=== PATIENT | male | born 1945 | race Caucasian/White ===

== ENCOUNTER → 2016-04-04 | Day surgery (SDC) | payer MEDICARE ==
[~2016-04-04] VITALS: Ht 175.3 cm; Wt 72.1 kg
[~2016-04-04] MED LIST: /CELE20CA OR; /HALO1T OR; /OXCA30TA OR; /QUET25TA PO; ACET500C OR; ACET65TA PO; ACETAMINOPHEN 325 MG TAB PO PRN; ALBU17IN2 IN; AMBI10TA OR; AMIODIPINE; AMLO10TA2 PO; ASPI81TA3 OR; ASPI81TA83 OR; AcetaZOLAMIDE 500 MG ER CAP PO ONE; BSS with VANC/TOB/EPI for EYE CASES IR ONE; COLA100C2 OR; CYCLOPENTOLATE 2% OPHTH SOLN OD ONE; D5W/0.2% SODIUM CHLORIDE 1,000 ML IV SCH; FISH100049 PO; FLEXERIL; HEALON DUET (HEALON 10MG/ML 0.55ML & HEALON ENDOCOAT 30MG/ML 0.85ML) As Ordered ONE; HEALON DUET (HEALON 10MG/ML 0.55ML & HEALON ENDOCOAT 30MG/ML 0.85ML) XX ONE; KETOROLAC 0.5% OPHTH SOLN OD ONE; LACT10SO8 OR; LAMISIL PO; LIDOCAINE 1% SDV 5 ML VIAL As Ordered ONE; LIDOCAINE 4% INJ 5 ML AMP OU ONE; MIDAZOLAM INJ 2 MG/2 ML VIAL (J2250) As Ordered ONE; MOXIFLOXACIN IN BSS 0.25MG/0.25ML INTRACAMERAL INJ (OR EYE ONLY)(J2280) As Ordered ONE; MOXIFLOXACIN IN BSS 0.25MG/0.25ML INTRACAMERAL INJ (OR EYE ONLY)(J2280) ICAM ONE; NAPR500T OR; NASACORT AQ; NORV5TAB OR; NORVASC PO; OFLOXACIN 0.3 % (OCUFLOX) OPTH SOL 5ML OD ONE; ONDANSETRON 4MG/2ML VIAL (J2405) IV PRN; PHENYLEPHRINE 2.5% OPHTH SOL 2ML OD ONE; POVIDONE-IODINE 5% OPHTH PREP SOL 30ML As Ordered ONE; PROPARACAINE 0.5% OPHTH SOL 15ML OD PRN; RESTASIS EYE DROPS OU; RESTASIS OU; SALINE NASAL SPRAY; SERO1TAB2 PO; SERO400T3 OR; SILD50TA OR; SING10TA31 OR; SYSTANE OU; TRAZ50TA OR; TRIAMCINOLONE PRES FR 40 MG/ML 1ML(TRIESENCE)(OR EYE ONLY)(J3300 PER 1MG) As Ordered ONE; TRIAMCINOLONE PRES FR 40 MG/ML 1ML(TRIESENCE)(OR EYE ONLY)(J3300 PER 1MG) IO ONE; TRIMETHOBENZAMIDE 300 MG CAP PO PRN; TROPICAMIDE 1% OPHTH SOLN 2 ML OD ONE; TYLENOL #3 OR; VICO5TAB OR; [UNRECOGNIZED DRUG - OTHER]; naproxen PO
--- NOTE | 2016-04-04 08:44 | RO ---
DATE OF PROCEDURE: 04/04/2016 PREPROCEDURE DIAGNOSIS: Cataract of right eye. POSTPROCEDURE DIAGNOSIS: Cataract of right eye. PROCEDURE: Femtosecond laser and phacoemulsification of the intraocular lens with lens implantation right eye. Intraocular lens power used was PCB00, 21 diopter. SURGEON: Dr. Armani Collins MOWING MACHINE OPERATOR: None. ANESTHESIA: Local IV standby. FINDINGS: Cataract of right eye. COMPLICATIONS: None. DESCRIPTION OF PROCEDURE: The patient was brought to the operating room and laid in supine position. A lid speculum was placed, and patient was brought under the femtosecond laser. After the satisfactory placement of the patient interface, primary incision, secondary incision, and arcuate incisions with lens fragmentation was done without any complication per plan. The patients interface was then removed and lid speculum removed. Patient was placed under the microscope. The eye was prepped and draped in a sterile fashion for ophthalmic surgery. Lid speculum was placed. The secondary incision was opened and EndoCoat was injected into the anterior chamber. The temporal clear coronal incision was then opened and capsulorrhexis removed, followed by hydrodissection. This was followed by phacoemulsification of the lens within the capsular bag. Cortical material was then aspirated, and Healon was injected into the capsular bag. Intraocular lens was then placed. Excess Healon was aspirated. Wound was hydrated. The lid speculum was removed, and patient was returned to the recovery room in stable condition.
[2016-04-04 09:12] VITALS: BP 155/82
== END | disposition home or self-care (01) ==
LOC: M SDC 07:00
PROVIDERS: ATTEND Ophthalmology
DX: H26.9 Unspecified cataract (principal); I10 Essential (primary) hypertension; J45.909 Unspecified asthma, uncomplicated; G40.909 Epilepsy, unspecified, not intractable, without status epilepticus; F31.9 Bipolar disorder, unspecified; Z79.899 Other long term (current) drug therapy; Z95.0 Presence of cardiac pacemaker
CPT/HCPCS: 66984; J2250; J2280; J3300; V2632

== ENCOUNTER → 2016-05-18 | Outpatient (CLI) | payer MEDICARE ==
[~2016-05-18] MED LIST changes: -ACETAMINOPHEN 325 MG TAB PO PRN; -AcetaZOLAMIDE 500 MG ER CAP PO ONE; -BSS with VANC/TOB/EPI for EYE CASES IR ONE; -CYCLOPENTOLATE 2% OPHTH SOLN OD ONE; -D5W/0.2% SODIUM CHLORIDE 1,000 ML IV SCH; -HEALON DUET (HEALON 10MG/ML 0.55ML & HEALON ENDOCOAT 30MG/ML 0.85ML) As Ordered ONE; -HEALON DUET (HEALON 10MG/ML 0.55ML & HEALON ENDOCOAT 30MG/ML 0.85ML) XX ONE; -KETOROLAC 0.5% OPHTH SOLN OD ONE; -LIDOCAINE 1% SDV 5 ML VIAL As Ordered ONE; -LIDOCAINE 4% INJ 5 ML AMP OU ONE; -MIDAZOLAM INJ 2 MG/2 ML VIAL (J2250) As Ordered ONE; -MOXIFLOXACIN IN BSS 0.25MG/0.25ML INTRACAMERAL INJ (OR EYE ONLY)(J2280) As Ordered ONE; -MOXIFLOXACIN IN BSS 0.25MG/0.25ML INTRACAMERAL INJ (OR EYE ONLY)(J2280) ICAM ONE; -OFLOXACIN 0.3 % (OCUFLOX) OPTH SOL 5ML OD ONE; -ONDANSETRON 4MG/2ML VIAL (J2405) IV PRN; -PHENYLEPHRINE 2.5% OPHTH SOL 2ML OD ONE; -POVIDONE-IODINE 5% OPHTH PREP SOL 30ML As Ordered ONE; -PROPARACAINE 0.5% OPHTH SOL 15ML OD PRN; -TRIAMCINOLONE PRES FR 40 MG/ML 1ML(TRIESENCE)(OR EYE ONLY)(J3300 PER 1MG) As Ordered ONE; -TRIAMCINOLONE PRES FR 40 MG/ML 1ML(TRIESENCE)(OR EYE ONLY)(J3300 PER 1MG) IO ONE; -TRIMETHOBENZAMIDE 300 MG CAP PO PRN; -TROPICAMIDE 1% OPHTH SOLN 2 ML OD ONE
--- NOTE | 2016-05-18 16:15 | REP ---
Right upper extremity duplex Doppler venous ultrasound. Real time compression and duplex Doppler evaluation of the right upper extremity deep venous system is performed. The right subclavian, jugular, axillary, brachial, basilic and cephalic veins are fully compressible where accessible with transducer pressure, and demonstrate no intraluminal thrombus and normal venous waveforms. There is no evidence of deep venous thrombosis. Impression: No evidence of deep venous thrombosis of the right upper extremity deep vein system. Signed by Alexandre Dela Cruz MD 05/18/2016 04:06 P
== END ==
LOC: M RAD 14:57
PROVIDERS: ATTEND Orthopaedic Surgery
DX: M79.601 Pain in right arm (principal); Z86.79 Personal history of other diseases of the circulatory system

== ENCOUNTER → 2017-04-15 | Outpatient (CLI) | payer MEDICARE | LOC: M ADAMS 14:18 | DX: M51.34 Other intervertebral disc degeneration, thoracic region (principal); M41.25 Other idiopathic scoliosis, thoracolumbar region | CPT/HCPCS: 72070 ==

== ENCOUNTER 2018-08-12 11:09 | Day surgery (SDC) | payer MEDICARE ==
[~2018-08-12] VITALS: Ht 175.3 cm; Wt 74.8 kg
[~2018-08-12 11:09] MED LIST changes: -/CELE20CA OR; -/HALO1T OR; -/OXCA30TA OR; -/QUET25TA PO; +ACETAMINOPHEN 325 MG TAB PO PRN; -AMLO10TA2 PO; +AMLO10TA5 PO; +BSS with VANC/TOB/EPI for EYE CASES IR ONE; +CELE1CAP4 OR; +CYCLOPENTOLATE 2% OPHTH SOLN 2ML BTL OS ONE; +FISH1000 PO; +HALO1TAB20 OR; +HEALON DUET PRO(HEALON 10MG/ML 0.55ML & HEALON ENDOCOAT 30MG/ML 0.85ML) As Ordered ONE; +LIDOCAINE 1% SDV 5 ML VIAL As Ordered ONE; +LIDOCAINE 3.5 % 1ML OPHTH TOPICAL GEL OU ONE; +MIDAZOLAM INJ 2 MG/2 ML VIAL (J2250) As Ordered ONE; +MOXIFLOXACIN IN BSS 0.25MG/0.25ML INTRACAMERAL INJ (OR EYE ONLY)(J2280) As Ordered ONE; +OFLOXACIN 0.3 % (OCUFLOX) OPTH SOL 5ML OS ONE; +PHENYLEPHRINE 2.5% OPHTH SOL 2ML OS ONE; +PHENYLEPHRINE HCL 10 % OPHTH. SOL 5ML OS PRN; +POVIDONE-IODINE 5% OPHTH PREP SOL 30ML As Ordered ONE; +SERO1TAB3 PO; +TRIAMCINOLONE PRES FR 40 MG/ML 1ML(TRIESENCE)(OR EYE ONLY)(J3300 PER 1MG) As Ordered ONE; +TRIL1TAB OR; +TROPICAMIDE 1% OPHTH SOLN 2ML OS ONE; +VITAD1000T PO; +fentaNYL 100 MCG/2 ML INJECTION (J3010) As Ordered ONE
[2018-08-12] MEDS ORDERED: AcetaZOLAMIDE 500 MG ER CAP As Ordered ONE (12:52)
[2018-08-12 13:00] VITALS: BP 121/63
[2018-08-12] MEDS ORDERED: TRIMETHOBENZAMIDE 300 MG CAP PO PRN (13:00)
[2018-08-12] MEDS ORDERED: AcetaZOLAMIDE 500 MG ER CAP PO ONE (13:00)
[2018-08-12] MEDS ORDERED: ONDANSETRON 4MG/2ML VIAL (J2405) IV PRN (13:00)
== END 2018-08-12 13:10 | disposition home or self-care (01) ==
LOC: M SDC 11:09
PROVIDERS: ATTEND Ophthalmology
DX: H26.9 Unspecified cataract (principal); I49.9 Cardiac arrhythmia, unspecified; I10 Essential (primary) hypertension; M12.9 Arthropathy, unspecified; F31.9 Bipolar disorder, unspecified; J45.909 Unspecified asthma, uncomplicated; Z95.0 Presence of cardiac pacemaker; Z96.611 Presence of right artificial shoulder joint; Z79.899 Other long term (current) drug therapy
CPT/HCPCS: 66984; 92015; J2250; J2280; J3010; J3300; V2632

== ENCOUNTER → 2019-05-02 | Outpatient (REF) | payer MEDICARE ==
[~2019-05-02] MED LIST changes: -ACETAMINOPHEN 325 MG TAB PO PRN; -BSS with VANC/TOB/EPI for EYE CASES IR ONE; +CHOL100029 PO; -CYCLOPENTOLATE 2% OPHTH SOLN 2ML BTL OS ONE; -HEALON DUET PRO(HEALON 10MG/ML 0.55ML & HEALON ENDOCOAT 30MG/ML 0.85ML) As Ordered ONE; -LIDOCAINE 1% SDV 5 ML VIAL As Ordered ONE; -LIDOCAINE 3.5 % 1ML OPHTH TOPICAL GEL OU ONE; -MIDAZOLAM INJ 2 MG/2 ML VIAL (J2250) As Ordered ONE; -MOXIFLOXACIN IN BSS 0.25MG/0.25ML INTRACAMERAL INJ (OR EYE ONLY)(J2280) As Ordered ONE; -OFLOXACIN 0.3 % (OCUFLOX) OPTH SOL 5ML OS ONE; -PHENYLEPHRINE 2.5% OPHTH SOL 2ML OS ONE; -PHENYLEPHRINE HCL 10 % OPHTH. SOL 5ML OS PRN; -POVIDONE-IODINE 5% OPHTH PREP SOL 30ML As Ordered ONE; -TRIAMCINOLONE PRES FR 40 MG/ML 1ML(TRIESENCE)(OR EYE ONLY)(J3300 PER 1MG) As Ordered ONE; -TROPICAMIDE 1% OPHTH SOLN 2ML OS ONE; -VITAD1000T PO; -fentaNYL 100 MCG/2 ML INJECTION (J3010) As Ordered ONE
[2019-05-02 18:28] LABS: APPEARANCE, URINE CLEAR (CLEAR); BACTERIA, URINE AUTO NEGATIVE (NEGATIVE); BILIRUBIN, URINE AUTO NEGATIVE (NEGATIVE); BLOOD, URINE BLOOD NEGATIVE (NEGATIVE); COLOR, URINE YELLOW (YELLOW); GLUCOSE, URINE (UA) AUTO NEGATIVE (NEGATIVE); KETONE, URINE AUTO NEGATIVE (NEGATIVE); LEUKOCYTE ESTERASE, URINE AUTO NEGATIVE (NEGATIVE); NITRITE, URINE AUTO NEGATIVE (NEGATIVE); PROTEIN, URINE AUTO NEGATIVE (NEGATIVE); RBC, URINE AUTO 0 /HPF (0-3); SPECIFIC GRAVITY URINE AUTO 1.014 (1.002-1.035); SQUAMOUS EPITHELIAL CELL UR AU 0 /HPF (0-6); WBC, URINE AUTO 0 /HPF (0-3)
== END ==
LOC: M SMT 17:39
PROVIDERS: ATTEND Nurse Practitioner Family
DX: R35.0 Frequency of micturition (principal)
CPT/HCPCS: 51798; 81001; 87086; G0463

== ENCOUNTER → 2019-11-28 | Outpatient (CLI) | payer MEDICARE ==
[~2019-11-28] MED LIST changes: -AMLO10TA5 PO; +AMLO1TAB25 PO
== END ==
LOC: M LABSMTC 10:59
PROVIDERS: ATTEND Internal Medicine Cardiovascular Disease
DX: Z01.812 Encounter for preprocedural laboratory examination (principal); Z20.828 Contact with and (suspected) exposure to other viral communicable diseases; I49.5 Sick sinus syndrome; Z95.0 Presence of cardiac pacemaker

== ENCOUNTER → 2019-11-28 | Outpatient (CLI) | payer MEDICARE ==
[2019-11-28 12:11] LABS: BASO % 0.6 % (0.0-1.0); EOS # 0.2 10^3/uL (0.0-0.5); EOS % 2.4 % (0.0-3.0); HEMATOCRIT 45.1 % (42.0-52.0); HEMOGLOBIN 15.3 g/dl (13.5-17.5); LYMPH # 1.1 10^3/uL (1.5-5.0); LYMPH % 16.8 % (24.0-44.0); MEAN CORPUSCULAR HEMOGLOBIN 31.9 pg (27.0-33.0); MEAN CORPUSCULAR HGB CONC 33.9 g/dl (32.0-36.5); MONO # 0.9 10^3/uL (0.0-0.8); MONO % 13.3 % (0.0-5.0); NEUTROPHILS # 4.5 10^3/uL (1.5-8.5); NEUTROPHILS % 66.8 % (36.0-66.0); PLATELET COUNT, AUTOMATED 206 10^3/uL (150-450); WHITE BLOOD COUNT 6.8 10^3/uL (4.0-10.0)
[2019-11-28 12:28] LABS: BLOOD UREA NITROGEN 23 MG/DL (7-18); CALCIUM LEVEL 9.1 MG/DL (8.8-10.2); CARBON DIOXIDE LEVEL 30 MEQ/L (21-32); CHLORIDE LEVEL 104 MEQ/L (98-107); CREATININE FOR GFR 0.98 MG/DL (0.70-1.30); GLOMERULAR FILTRATION RATE > 60.0 (>42); GLUCOSE, FASTING 79 MG/DL (70-100); POTASSIUM SERUM 4.4 MEQ/L (3.5-5.1); SODIUM LEVEL 136 MEQ/L (136-145)
== END ==
LOC: M LAB 11:39
PROVIDERS: ATTEND Internal Medicine Cardiovascular Disease
DX: Z01.812 Encounter for preprocedural laboratory examination (principal); Z20.828 Contact with and (suspected) exposure to other viral communicable diseases; I49.5 Sick sinus syndrome; Z95.0 Presence of cardiac pacemaker
CPT/HCPCS: 36415; 80048; 85025; C9803; U0003

== ENCOUNTER 2020-01-13 07:13 | Emergency (ER) | payer MEDICARE ==
[~2020-01-13] VITALS: Ht 175.3 cm; Wt 78.7 kg
[2020-01-13] MEDS ORDERED: QUET1TAB10 (07:24)
[2020-01-13] MEDS ORDERED: XARE20TA (07:24)
[2020-01-13] MEDS ORDERED: AMIO200T3 (07:24)
[2020-01-13] MEDS ORDERED: METO1TAB7 (07:24)
[2020-01-13] MEDS ORDERED: FURO20TA2 (07:24)
[2020-01-13] MEDS ORDERED: QUET1TAB7 (07:24)
[2020-01-13] MEDS ORDERED: TAMS1CAP17 (07:24)
[2020-01-13] MEDS ORDERED: AMMO12CR7 (07:24)
--- NOTE | 2020-01-13 07:51 | REPVR ---
PROCEDURE INFORMATION: Exam: CT Head Without Contrast Exam date and time: 01/13/2020 7:34 AM Age: 74 years old Clinical indication: Pain; Headache; Additional info: Fall on thinners TECHNIQUE: Imaging protocol: Computed tomography of the head without contrast. Radiation optimization: All CT scans at this facility use at least one of these dose optimization techniques: automated exposure control; mA and/or kV adjustment per patient size (includes targeted exams where dose is matched to clinical indication); or iterative reconstruction. COMPARISON: CT Head without contrast 04/24/2013 2:08 PM (report not provided) FINDINGS: Brain: Patchy lucencies in the white matter are nonspecific but most suggestive of chronic microvascular ischemic disease. There is no evidence for large acute cortical infarct. No intracranial hemorrhage or extraaxial collection is identified. There is no significant intracranial mass effect. Cerebral ventricles: No ventriculomegaly. Bones/joints: Unremarkable. No acute fracture. Paranasal sinuses: Visualized sinuses are unremarkable. No fluid levels. Mastoid air cells: Visualized mastoid air cells are well aerated. Vasculature: Intracranial atherosclerotic vascular calcifications are noted. Soft tissues: Unremarkable. IMPRESSION: No CT evidence for acute intracranial abnormality. Electronically signed by: Gato Dinh On 01/13/2020 07:51:02 AM
--- NOTE | 2020-01-13 08:16 | REP ---
INDICATION: trauma COMPARISON: 08/27/2007, 08/25/2007 TECHNIQUE: AP, lateral, bilateral oblique views. FINDINGS: Evidence for prior fixation along the lateral malleolus and fibula. Associated chronic posttraumatic degenerative changes are appreciated. There is evidence for a nondisplaced fracture of the medial malleolus which should be correlated with mechanism of injury and point of tenderness. IMPRESSION: Old injury and posttraumatic degenerative changes. Suspected nondisplaced acute medial malleolus fracture. <Electronically signed by Jeancarlos Clark > 01/13/20 [id number]
[2020-01-13 09:46] VITALS: BP 111/69
== END 2020-01-13 10:00 | disposition home or self-care (01) ==
LOC: M ED 07:13
DX: S82.54XA Nondisplaced fracture of medial malleolus of right tibia, initial encounter for closed fracture (principal); W01.0XXA Fall on same level from slipping, tripping and stumbling without subsequent striking against object, initial encounter; Y92.096 Garden or yard of other non-institutional residence as the place of occurrence of the external cause; I10 Essential (primary) hypertension; K21.9 Gastro-esophageal reflux disease without esophagitis; Z95.0 Presence of cardiac pacemaker; Z79.899 Other long term (current) drug therapy; Z79.01 Long term (current) use of anticoagulants; Z87.81 Personal history of (healed) traumatic fracture

== ENCOUNTER → 2020-05-27 | Outpatient (CLI) | payer MEDICARE ==
[~2020-05-27] MED LIST changes: +AMIO200T3; +AMMO12CR7; +FURO20TA2; +METO1TAB7; +QUET25TA3; +QUET300T2; +TAMS1CAP17; +XARE20TA
--- NOTE | 2020-05-27 11:25 | PFTRPT ---
Height: 69.00 Inches Weight: 170.00 Lbs BSA: 1.93 Diagnosis: R06.02 DATE: 05/27/2020 ORDERING PHYSICIAN: Dr. Vincent Parks Pre and post bronchodilator studies have excellent technical quality. Forced vital capacity is normal. FEV1 is in proportion. Obstructive index is therefore normal. Expiratory limit of the flow-volume loop is normal. No significant bronchodilator response is identified. Total lung capacity is borderline. Residual volume is in proportion. Diffusing capacity although mildly reduced is appropriate for alveolar volume. No hemoglobin available for correction. Airway resistance and conductance are normal. IMPRESSION: Borderline total lung capacity with mild reduction in the absolute diffusing capacity requires clinical correlation. MTDD
== END ==
LOC: M CARPUL 10:47
PROVIDERS: ATTEND Internal Medicine Cardiovascular Disease
DX: R06.02 Shortness of breath (principal); T46.2X5A Adverse effect of other antidysrhythmic drugs, initial encounter

== ENCOUNTER → 2020-05-31 | Outpatient (CLI) | payer MEDICARE ==
[2020-05-31 17:47] LABS: FREE T4 0.94 NG/DL (0.76-1.46); THYROID STIMULATING HORMONE 7.17 uIU/ML (0.358-3.740)
== END ==
LOC: M LAB 15:52
PROVIDERS: ATTEND Internal Medicine
DX: E03.9 Hypothyroidism, unspecified (principal)

== ENCOUNTER → 2020-08-09 | Outpatient (REF) | payer MEDICARE ==
[2020-08-09 14:27] LABS: FREE T4 0.85 NG/DL (0.76-1.46); THYROID STIMULATING HORMONE 8.37 uIU/ML (0.358-3.740)
== END ==
LOC: M LABDRWAD 13:25
PROVIDERS: ATTEND Internal Medicine
DX: E07.89 Other specified disorders of thyroid (principal)

== ENCOUNTER → 2020-12-30 | Outpatient (CLI) | payer MEDICARE ==
[~2020-12-30] MED LIST changes: +QUET1TAB17; -QUET25TA3
[2020-12-30 15:24] LABS: BASO # 0.1 10^3/uL (0.0-0.2); BASO % 0.7 % (0.0-1.0); EOS # 0.2 10^3/uL (0.0-0.5); EOS % 2.4 % (0.0-3.0); HEMATOCRIT 45.2 % (42.0-52.0); HEMOGLOBIN 15.3 g/dl (13.5-17.5); LYMPH # 1.6 10^3/uL (1.5-5.0); LYMPH % 24.1 % (24.0-44.0); MEAN CORPUSCULAR HEMOGLOBIN 31.9 pg (27.0-33.0); MEAN CORPUSCULAR HGB CONC 33.8 g/dl (32.0-36.5); MEAN CORPUSCULAR VOLUME 94.2 fl (80.0-96.0); MONO # 0.8 10^3/uL (0.0-0.8); MONO % 12.1 % (2.0-8.0); NEUTROPHILS # 4.1 10^3/uL (1.5-8.5); NEUTROPHILS % 60.4 % (36.0-66.0); PLATELET COUNT, AUTOMATED 204 10^3/uL (150-450); WHITE BLOOD COUNT 6.8 10^3/uL (4.0-10.0)
[2020-12-30 16:11] LABS: BLOOD UREA NITROGEN 15 MG/DL (7-18); CALCIUM LEVEL 9.2 MG/DL (8.8-10.2); CARBON DIOXIDE LEVEL 32 MEQ/L (21-32); CHLORIDE LEVEL 99 MEQ/L (98-107); CREATININE FOR GFR 0.95 MG/DL (0.70-1.30); GLOMERULAR FILTRATION RATE > 60.0 (>42); GLUCOSE, FASTING 94 MG/DL (70-100); POTASSIUM SERUM 4.3 MEQ/L (3.5-5.1); SODIUM LEVEL 134 MEQ/L (136-145)
== END ==
LOC: M LAB 14:56
PROVIDERS: ATTEND Internal Medicine Cardiovascular Disease
DX: R53.83 Other fatigue (principal)

== ENCOUNTER → 2020-12-31 | Outpatient (CLI) | payer MEDICARE ==
--- NOTE | 2020-12-31 12:01 | REP ---
INDICATION: PAIN IN RT KNEE AND BILAT ANKLE/FEET. COMPARISON: Right ankle of 01/13/2020 TECHNIQUE: Two views each ankle FINDINGS: Right ankle: Previous ORIF status quo. Due to the technique utilized in obtaining the radiograph the distal medial malleolar fracture is obscured. There is no change in appearance of the mortise. Left ankle: Two views showing no acute osseous abnormality. IMPRESSION: As above. <Electronically signed by Christian Salomon > 12/31/20 [id number]
--- NOTE | 2020-12-31 12:08 | REP ---
INDICATION: PAIN IN RT KNEE AND BILAT ANKLE/FEET. COMPARISON: None. TECHNIQUE: Four views each foot FINDINGS: Right foot: There are mild degenerative changes seen throughout the foot. The bones are somewhat demineralized. There is no acute fracture or destructive osseous lesion. Left: Mild degenerative changes seen throughout the foot. Bones are somewhat demineralized. There is no evidence of an acute fracture or destructive osseous lesion. IMPRESSION: Chronic changes bilateral. <Electronically signed by Christian Salomon > 12/31/20 [id number]
--- NOTE | 2020-12-31 12:11 | REP ---
INDICATION: PAIN IN RT KNEE AND BILAT ANKLE/FEET. COMPARISON: None. TECHNIQUE: Three views each knee FINDINGS: There is mild tricompartmental marginal osteophytosis seen bilaterally. There are calcifications seen in the medial and lateral compartment bilaterally. There is mild asymmetric patellofemoral joint space narrowing bilaterally. No acute fracture, dislocation or subluxation is seen bilaterally. IMPRESSION: Chronic changes as described above bilaterally. Compartmental calcifications likely secondary to calcified meniscal degenerative changes. <Electronically signed by Christian Salomon > 12/31/20 [id number]
== END ==
LOC: M SOG 11:15
PROVIDERS: ATTEND Orthopaedic Surgery
DX: M25.561 Pain in right knee (principal); M25.571 Pain in right ankle and joints of right foot; M25.572 Pain in left ankle and joints of left foot; M19.90 Unspecified osteoarthritis, unspecified site

== ENCOUNTER → 2021-01-18 | Outpatient (CLI) | payer MEDICARE ==
--- NOTE | 2021-01-18 17:41 | REPVR ---
PROCEDURE INFORMATION: Exam: CT Head Without Contrast Exam date and time: 01/18/2021 10:10 AM Age: 75 years old Clinical indication: Syncope and collapse TECHNIQUE: Imaging protocol: Computed tomography of the head without contrast. Radiation optimization: All CT scans at this facility use at least one of these dose optimization techniques: automated exposure control; mA and/or kV adjustment per patient size (includes targeted exams where dose is matched to clinical indication); or iterative reconstruction. COMPARISON: CT Head without contrast 01/13/2020 7:29 AM FINDINGS: Brain: No intracranial hemorrhage or extra-axial fluid collection. No evidence of mass effect or midline shift. Dela Cruz-white matter differentiation is intact. Cerebral ventricles: No ventriculomegaly. Paranasal sinuses: Visualized sinuses are unremarkable. No fluid levels. Mastoid air cells: Unremarkable. Bones/joints: No acute osseus lesion or fracture. Soft tissues: Unremarkable. IMPRESSION: No acute intracranial pathology. Electronically signed by: Manpreet Cason On 01/18/2021 17:40:39 PM
== END ==
LOC: M PLAIMG 09:45
PROVIDERS: ATTEND Internal Medicine
DX: R55 Syncope and collapse (principal)

== ENCOUNTER 2021-06-06 00:04 | Inpatient (IN) | payer MEDICARE ==
[~2021-06-06] VITALS: Ht 172.7 cm; Wt 80.5 kg
[2021-06-06] VITALS (8 sets, daily range): BP systolic 146–179; BP diastolic 67–93
[~2021-06-06 00:04] MED LIST changes: -AMIO200T3; +AMIO200T49; -AMMO12CR7; +AMMO12CR7 TOP; -FURO20TA2; +FURO20TA2 PO; -QUET1TAB17; +QUET1TAB17 PO; -QUET300T2; +QUET300T2 PO; -TAMS1CAP17; +TAMS1CAP17 PO; -XARE20TA; +XARE20TA PO
[2021-06-06] MEDS ORDERED: LEVO25TA5 PO (00:16)
[2021-06-06] MEDS ORDERED: GABA-282 PO (00:16)
[2021-06-06] MEDS ORDERED: AMBI5TAB PO (00:16)
[2021-06-06] MEDS ORDERED: LOSA50TA28 PO (00:16)
[2021-06-06] MEDS ORDERED: MELA10CA6 PO (00:16)
[2021-06-06] MEDS ORDERED: LOSARTAN 50MG TABLET PO ONE (02:25)
[2021-06-06 03:05] LABS: BASO % 0.3 % (0.0-1.0); EOS # 0.1 10^3/uL (0.0-0.5); EOS % 0.6 % (0.0-3.0); HEMATOCRIT 38.9 % (42.0-52.0); HEMOGLOBIN 14.4 g/dl (13.5-17.5); LYMPH % 9.5 % (24.0-44.0); MEAN CORPUSCULAR HEMOGLOBIN 33.3 pg (27.0-33.0); MONO # 0.8 10^3/uL (0.0-0.8); MONO % 7.9 % (2.0-8.0); NEUTROPHILS # 8.3 10^3/uL (1.5-8.5); NEUTROPHILS % 81.4 % (36.0-66.0); PLATELET COUNT, AUTOMATED 206 10^3/uL (150-450); RED BLOOD COUNT 4.32 10^6/uL (4.30-6.10); WHITE BLOOD COUNT 10.1 10^3/uL (4.0-10.0)
[2021-06-06 03:30] LABS: BLOOD UREA NITROGEN 12 MG/DL (7-18); CALCIUM LEVEL 8.5 MG/DL (8.8-10.2); CARBON DIOXIDE LEVEL 25 MEQ/L (21-32); CHLORIDE LEVEL 93 MEQ/L (98-107); CREATININE FOR GFR 0.81 MG/DL (0.70-1.30); GLOMERULAR FILTRATION RATE > 60.0 (>42); GLUCOSE, FASTING 168 MG/DL (70-100); POTASSIUM SERUM 3.9 MEQ/L (3.5-5.1); SODIUM LEVEL 128 MEQ/L (136-145)
[2021-06-06] MEDS ORDERED: NS 500 ML IV ONE (04:00)
[2021-06-06 04:57] LABS: RSV AMPLIFICATION NEGATIVE (NEGATIVE)
[2021-06-06] MEDS ORDERED: MOM 30ML SUSPENSION UDC PO PRN (05:00)
[2021-06-06] MEDS ORDERED: METO1TAB32 PO (05:17)
[2021-06-06] MEDS ORDERED: VITA100093 PO (05:17)
[2021-06-06] MEDS ORDERED: IBUP200T46 PO (05:17)
[2021-06-06] MEDS ORDERED: ACET-683 PO (05:17)
[2021-06-06] MEDS ORDERED: LEVO50TA5 PO (05:17)
[2021-06-06] MEDS ORDERED: HOME MED LIST COMPLETE! XX SCH (05:20)
[2021-06-06] MEDS ORDERED: NS 1,000 ML IV SCH (05:20)
[2021-06-06] MEDS: LEVOTHYROXINE 50MCG TABLET (0.05MG) PO SCH (06:10)
[2021-06-06] MEDS: TAMSULOSIN 0.4 MG CAP PO SCH (09:01)
[2021-06-06] MEDS: RIVAROXABAN 20 MG TAB (XARELTO) PO SCH (09:25)
[2021-06-06 09:32] LABS: CORTISOL AM 7.3 UG/DL (4.3-22.4)
[2021-06-06] MEDS: METOPROLOL SUCC *XL* 25MG TAB (TopROL *XL*) PO SCH (11:42)
[2021-06-06] MEDS: ACETAMINOPHEN TAB 650MG DOSE (2X325MG) PO PRN ×3 (12:45→23:55)
[2021-06-06] MEDS ORDERED: RIVAROXABAN 20 MG TAB (XARELTO) PO SCH (18:00)
[2021-06-06] MEDS ORDERED: GABAPENTIN 300 MG CAP PO SCH (21:00)
[2021-06-06] MEDS ORDERED: QUEtiapine FUMARATE 200 MG TAB PO SCH (21:00)
[2021-06-06] MEDS ORDERED: QUEtiapine FUMARATE 25 MG TAB PO SCH (21:00)
[2021-06-06] MEDS ORDERED: RAMELTEON 8 MG TAB (ROZEREM) PO ONE (23:50)
[2021-06-07 00:15] VITALS: BP 132/88
[2021-06-07 04:19] VITALS: BP 132/80
[2021-06-07] MEDS: LEVOTHYROXINE 50MCG TABLET (0.05MG) PO SCH (05:51)
[2021-06-07 08:45] VITALS: BP 132/64
[2021-06-07] MEDS: RIVAROXABAN 20 MG TAB (XARELTO) PO SCH (08:46)
[2021-06-07] MEDS: TAMSULOSIN 0.4 MG CAP PO SCH (08:46)
[2021-06-07] MEDS: METOPROLOL SUCC *XL* 25MG TAB (TopROL *XL*) PO SCH (08:47)
[2021-06-07] MEDS ORDERED: LOSARTAN 50MG TABLET PO SCH (09:00)
[2021-06-07] MEDS ORDERED: FUROSEMIDE 20 MG TAB PO SCH (09:00)
[2021-06-07 11:45] VITALS: BP 134/86
[2021-06-07 11:52] VITALS: BP 134/86
[2021-06-07] MEDS ORDERED: LORA1TAB4 PO (12:07)
[2021-06-07] MEDS ORDERED: AMBI5TAB PO (12:07)
== END 2021-06-07 13:56 | disposition home or self-care (01) | DRG 305 ==
LOC: M ED 00:04 → M ED INP 04:57 → ENRESERV 11:38 → M PCU 12:25
PROVIDERS: ADMIT Family Medicine; ATTEND Family Medicine
DX: I16.0 Hypertensive urgency (principal); E87.1 Hypo-osmolality and hyponatremia; Z95.0 Presence of cardiac pacemaker; I48.91 Unspecified atrial fibrillation; F31.9 Bipolar disorder, unspecified; E03.9 Hypothyroidism, unspecified; I10 Essential (primary) hypertension; J45.909 Unspecified asthma, uncomplicated; Z96.611 Presence of right artificial shoulder joint; Z20.822 Contact with and (suspected) exposure to COVID-19; Z79.01 Long term (current) use of anticoagulants; Z79.899 Other long term (current) drug therapy; N40.0 Benign prostatic hyperplasia without lower urinary tract symptoms; Z63.0 Problems in relationship with spouse or partner; F43.22 Adjustment disorder with anxiety; G58.9 Mononeuropathy, unspecified; I95.9 Hypotension, unspecified

== ENCOUNTER → 2021-06-18 | Outpatient (REF) | payer MEDICARE ==
[~2021-06-18] MED LIST changes: +ACET-683 PO; +AMBI5TAB PO; +GABA-282 PO; +IBUP200T46 PO; +LEVO25TA5 PO; +LEVO50TA5 PO; +LORA1TAB4 PO; +LOSA50TA28 PO; +MELA10CA6 PO; +METO1TAB32 PO; +VITA100093 PO
== END ==
LOC: M LAB REF 13:27
PROVIDERS: ATTEND Internal Medicine
DX: I10 Essential (primary) hypertension (principal)

== ENCOUNTER → 2021-06-28 | Outpatient (CLI) | payer MEDICARE | LOC: M PLAIMG 09:59 | PROVIDERS: ATTEND Physician Assistant | DX: M51.26 Other intervertebral disc displacement, lumbar region (principal); M51.27 Other intervertebral disc displacement, lumbosacral region; M48.061 Spinal stenosis, lumbar region without neurogenic claudication; M48.07 Spinal stenosis, lumbosacral region; I70.8 Atherosclerosis of other arteries ==

== ENCOUNTER → 2021-07-19 | Outpatient (CLI) | payer MEDICARE | LOC: M RAD 08:45 | PROVIDERS: ATTEND Internal Medicine | DX: I10 Essential (primary) hypertension (principal) ==

== ENCOUNTER → 2021-07-22 | Outpatient (CLI) | payer MEDICARE ==
[2021-07-22 16:47] LABS: ALBUMIN 3.4 GM/DL (3.2-5.2); ALT/SGPT 22 U/L (12-78); BILIRUBIN,TOTAL 0.8 MG/DL (0.2-1.0); BLOOD UREA NITROGEN 12 MG/DL (7-18); CALCIUM LEVEL 9.5 MG/DL (8.8-10.2); CARBON DIOXIDE LEVEL 27 MEQ/L (21-32); CHLORIDE LEVEL 102 MEQ/L (98-107); CREATININE FOR GFR 0.63 MG/DL (0.70-1.30); GLOMERULAR FILTRATION RATE > 60.0 (>42); GLUCOSE, FASTING 97 MG/DL (70-100); POTASSIUM SERUM 4.3 MEQ/L (3.5-5.1); SODIUM LEVEL 135 MEQ/L (136-145); TOTAL PROTEIN 6.1 GM/DL (6.4-8.2)
== END ==
LOC: M LAB 15:38
PROVIDERS: ATTEND Internal Medicine
DX: E87.1 Hypo-osmolality and hyponatremia (principal)

== ENCOUNTER → 2021-08-10 | Outpatient (CLI) | payer MEDICARE ==
[2021-08-10 14:30] LABS: PLATELET COUNT, AUTOMATED 210 10^3/uL (150-450)
[2021-08-10 14:45] LABS: INR 1.33; PROTHROMBIN TIME 16.9 SECONDS (12.7-14.5)
[2021-08-10 14:46] LABS: PARTIAL THROMBOPLASTIN TIME 41.5 SECONDS (25.9-37.0)
== END ==
LOC: M LAB 13:55
PROVIDERS: ATTEND Physical Medicine & Rehabilitation
DX: M53.3 Sacrococcygeal disorders, not elsewhere classified (principal); Z79.01 Long term (current) use of anticoagulants

== ENCOUNTER → 2021-08-22 | Outpatient (CLI) | payer MEDICARE | LOC: M LAB 08:26 | PROVIDERS: ATTEND Physical Medicine & Rehabilitation | DX: Z01.812 Encounter for preprocedural laboratory examination (principal) ==

== ENCOUNTER 2021-10-09 18:11 | Emergency (ER) | payer MEDICARE ==
[~2021-10-09] VITALS: Ht 172.7 cm; Wt 74.5 kg
[2021-10-09] MEDS ORDERED: NS 500 ML IV ONE (18:35)
[2021-10-09 19:02] LABS: BASO % 0.2 % (0.0-1.0); EOS # 0.4 10^3/uL (0.0-0.5); EOS % 2.9 % (0.0-3.0); HEMATOCRIT 44.8 % (42.0-52.0); HEMOGLOBIN 15.6 g/dl (13.5-17.5); LYMPH # 2.5 10^3/uL (1.5-5.0); LYMPH % 20.2 % (24.0-44.0); MEAN CORPUSCULAR HEMOGLOBIN 32.7 pg (27.0-33.0); MEAN CORPUSCULAR HGB CONC 34.8 g/dl (32.0-36.5); MEAN CORPUSCULAR VOLUME 93.9 fl (80.0-96.0); MONO # 1.3 10^3/uL (0.0-0.8); MONO % 10.5 % (2.0-8.0); NEUTROPHILS # 8.2 10^3/uL (1.5-8.5); NEUTROPHILS % 65.6 % (36.0-66.0); PLATELET COUNT, AUTOMATED 259 10^3/uL (150-450); RED BLOOD COUNT 4.77 10^6/uL (4.30-6.10); WHITE BLOOD COUNT 12.5 10^3/uL (4.0-10.0)
[2021-10-09 19:13] LABS: INR 2.09; PROTHROMBIN TIME 23.9 SECONDS (12.7-14.5)
[2021-10-09 19:14] LABS: PARTIAL THROMBOPLASTIN TIME 42.6 SECONDS (25.9-37.0)
[2021-10-09 19:30] LABS: CK-MB VALUE MASS 1.1 NG/ML (<3.6); MB/CK RELATIVE INDEX 5.79 (< OR =4)
[2021-10-09 19:41] LABS: ALBUMIN 3.3 GM/DL (3.2-5.2); ALT/SGPT 29 U/L (12-78); BILIRUBIN,DIRECT 0.3 MG/DL (0.0-0.2); BILIRUBIN,TOTAL 0.9 MG/DL (0.2-1.0); BLOOD UREA NITROGEN 25 MG/DL (7-18); CALCIUM LEVEL 9.3 MG/DL (8.8-10.2); CARBON DIOXIDE LEVEL 31 MEQ/L (21-32); CHLORIDE LEVEL 100 MEQ/L (98-107); CREATININE FOR GFR 0.93 MG/DL (0.70-1.30); FREE T4 1.28 NG/DL (0.76-1.46); GLOMERULAR FILTRATION RATE > 60.0 (>42); GLUCOSE, FASTING 109 MG/DL (70-100); LIPASE 62 U/L (73-393); NT-PRO BNP 313 PG/ML (<450); SODIUM LEVEL 137 MEQ/L (136-145); TOTAL PROTEIN 6.4 GM/DL (6.4-8.2)
[2021-10-09 20:05] LABS: RSV AMPLIFICATION NEGATIVE (NEGATIVE)
[2021-10-09 21:02] LABS: CK-MB VALUE MASS 1.1 NG/ML (<3.6); MB/CK RELATIVE INDEX 3.33 (< OR =4)
[2021-10-09 22:30] VITALS: BP 130/68
[2021-10-09 22:50] VITALS: O2SAT 98
== END 2021-10-09 22:59 | disposition home or self-care (01) ==
LOC: M ED 18:11
DX: R42 Dizziness and giddiness (principal); I10 Essential (primary) hypertension; I48.91 Unspecified atrial fibrillation; E07.9 Disorder of thyroid, unspecified; E78.9 Disorder of lipoprotein metabolism, unspecified; F31.9 Bipolar disorder, unspecified; Z79.899 Other long term (current) drug therapy; Z79.890 Hormone replacement therapy; Z79.01 Long term (current) use of anticoagulants

== ENCOUNTER → 2021-10-13 | Outpatient (CLI) | payer MEDICARE | LOC: M RAD 08:20 | PROVIDERS: ATTEND Internal Medicine | DX: R10.13 Epigastric pain (principal) ==

== ENCOUNTER → 2022-05-17 | Outpatient (REF) | payer MEDICARE | LOC: M SMT 16:31 | PROVIDERS: ATTEND Physician Assistant | DX: R97.20 Elevated prostate specific antigen [PSA] (principal) ==

== ENCOUNTER → 2022-06-02 | Outpatient (REF) | payer MEDICARE ==
[~2022-06-02] MED LIST changes: +LORA1TAB23 PO; -LORA1TAB4 PO
== END ==
LOC: M SMT 09:58
PROVIDERS: ATTEND Urology
DX: C61 Malignant neoplasm of prostate (principal)

== ENCOUNTER → 2022-11-30 | Outpatient (CLI) | payer MEDICARE | LOC: M LAB 12:22 | PROVIDERS: ATTEND Urology | DX: R97.20 Elevated prostate specific antigen [PSA] (principal) ==

== ENCOUNTER 2022-12-22 15:58 | Emergency (ER) | payer MEDICARE ==
[~2022-12-22] VITALS: Ht 172.7 cm; Wt 79.5 kg
[2022-12-22] MEDS ORDERED: LIDOCAINE 5% (LIDODERM) PATCH TD ONE (16:55)
[2022-12-22] MEDS ORDERED: ACETAMINOPHEN 500 MG TAB PO ONE (16:55)
[2022-12-22] MEDS ORDERED: ASPE4PAD TOP (18:01)
[2022-12-22 18:19] VITALS: BP 137/79; TEMP 97.9; O2SAT 97
== END 2022-12-22 18:38 | disposition home or self-care (01) ==
LOC: M ED 15:58
DX: S00.01XA Abrasion of scalp, initial encounter (principal); M79.18 Myalgia, other site; W01.0XXA Fall on same level from slipping, tripping and stumbling without subsequent striking against object, initial encounter; Y92.410 Unspecified street and highway as the place of occurrence of the external cause; I48.91 Unspecified atrial fibrillation; I10 Essential (primary) hypertension; E03.9 Hypothyroidism, unspecified; Z95.0 Presence of cardiac pacemaker; M47.892 Other spondylosis, cervical region; Z79.899 Other long term (current) drug therapy; Z79.01 Long term (current) use of anticoagulants

== ENCOUNTER → 2023-03-29 | Outpatient (CLI) | payer MEDICARE ==
[~2023-03-29] MED LIST changes: +ASPE4PAD TOP
[2023-03-29 14:13] LABS: BASO % 0.6 % (0.0-1.0); EOS # 0.2 10^3/uL (0.0-0.5); EOS % 3.6 % (0.0-3.0); HEMATOCRIT 42.7 % (42.0-52.0); HEMOGLOBIN 14.5 g/dl (13.5-17.5); LYMPH # 1.3 10^3/uL (1.5-5.0); LYMPH % 25.4 % (24.0-44.0); MEAN CORPUSCULAR HEMOGLOBIN 32.2 pg (27.0-33.0); MEAN CORPUSCULAR VOLUME 94.7 fl (80.0-96.0); MONO # 0.6 10^3/uL (0.0-0.8); MONO % 12.7 % (2.0-8.0); NEUTROPHILS # 2.9 10^3/uL (1.5-8.5); NEUTROPHILS % 57.5 % (36.0-66.0); PLATELET COUNT, AUTOMATED 219 10^3/uL (150-450); RED BLOOD COUNT 4.51 10^6/uL (4.30-6.10)
[2023-03-29 14:25] LABS: ERYTHROCYTE SEDIMENTATION RATE 9 mm/hr (0-20)
[2023-03-30 20:09] LABS: IgG P18 AB Absent (.); IgG P23 AB Absent (.); IgG P28 AB Absent (.); IgG P30 AB Absent (.); IgG P39 AB Absent (.); IgG P41 AB Absent (.); IgG P45 AB Absent (.); IgG P66 AB Absent (.); IgG P93 AB Absent (.); IgM P23 AB Present (.); IgM P39 AB Absent (.); IgM P41 AB Absent (.); LYME IgG WB INTERPRETATION Negative (.); LYME IgM WB INTERPRETATION Negative (.)
== END ==
LOC: M PLALAB 10:02
PROVIDERS: ATTEND Internal Medicine Infectious Disease
DX: R76.8 Other specified abnormal immunological findings in serum (principal); M25.461 Effusion, right knee

== ENCOUNTER → 2023-04-11 | Outpatient (CLI) | payer MEDICARE ==
[2023-04-11 16:18] LABS: BLOOD UREA NITROGEN 12 MG/DL (9-23); CREATININE FOR GFR 0.65 MG/DL (0.70-1.30); GLOMERULAR FILTRATION RATE > 60.0 (>42)
== END ==
LOC: M LAB 14:24
PROVIDERS: ATTEND Internal Medicine
DX: K59.9 Functional intestinal disorder, unspecified (principal)

== ENCOUNTER → 2023-04-20 | Outpatient (CLI) | payer MEDICARE ==
[~2023-04-20] MED LIST changes: +GASTROGRAFIN SOLUTION 30ML As Ordered ONE; +ISOVUE-370 76% 100ML VIAL As Ordered ONE
== END ==
LOC: M RAD 11:22
PROVIDERS: ATTEND Internal Medicine
DX: K59.09 Other constipation (principal)
CPT/HCPCS: 74177; Q9963; Q9967

== ENCOUNTER → 2023-08-24 | Outpatient (CLI) | payer MEDICARE ==
[~2023-08-24] MED LIST changes: -GASTROGRAFIN SOLUTION 30ML As Ordered ONE; -ISOVUE-370 76% 100ML VIAL As Ordered ONE
== END ==
LOC: M RAD 10:36
PROVIDERS: ATTEND Physician Assistant Surgical
DX: R19.4 Change in bowel habit (principal)

== ENCOUNTER → 2023-08-31 | Outpatient (REF) | payer MEDICARE | LOC: M LAB REF 11:12 | PROVIDERS: ATTEND Physician Assistant Surgical | DX: R19.7 Diarrhea, unspecified (principal) ==

== ENCOUNTER 2023-10-08 12:04 | Emergency (ER) | payer MEDICARE ==
[~2023-10-08] VITALS: Ht 175.3 cm; Wt 76.8 kg
[2023-10-08] MEDS: ACETAMINOPHEN 500 MG TAB PO ONE (17:04)
[2023-10-08 17:38] VITALS: BP 150/75; TEMP 96.8; O2SAT 98
== END 2023-10-08 17:40 | disposition home or self-care (01) ==
LOC: M ED 12:04
DX: G44.309 Post-traumatic headache, unspecified, not intractable (principal); S70.01XA Contusion of right hip, initial encounter; M16.11 Unilateral primary osteoarthritis, right hip; Y92.9 Unspecified place or not applicable; Y93.9 Activity, unspecified; Y99.9 Unspecified external cause status; V18.0XXA Pedal cycle driver injured in noncollision transport accident in nontraffic accident, initial encounter; I48.91 Unspecified atrial fibrillation; I10 Essential (primary) hypertension; E03.9 Hypothyroidism, unspecified; F41.9 Anxiety disorder, unspecified; F32.A Depression, unspecified; Z79.1 Long term (current) use of non-steroidal anti-inflammatories (NSAID); Z79.899 Other long term (current) drug therapy

== ENCOUNTER → 2023-12-28 | Outpatient (CLI) | payer MEDICARE ==
[~2023-12-28] MED LIST changes: +GABA-1172 PO; -GABA-282 PO
== END ==
LOC: M WHC 08:00
PROVIDERS: ATTEND Physician Assistant Medical
DX: R22.2 Localized swelling, mass and lump, trunk (principal)

== ENCOUNTER 2024-01-13 14:27 | Inpatient (IN) | payer MEDICARE ==
[~2024-01-13] VITALS: Ht 175.3 cm; Wt 76.8 kg
[2024-01-13 15:12] LABS: BASO % 0.2 % (0.0-1.0); EOS % 0.1 % (0.0-3.0); HEMATOCRIT 42.9 % (42.0-52.0); HEMOGLOBIN 15.2 g/dl (13.5-17.5); LYMPH # 0.3 10^3/uL (1.5-5.0); LYMPH % 1.7 % (24.0-44.0); MEAN CORPUSCULAR HGB CONC 35.4 g/dl (32.0-36.5); MEAN CORPUSCULAR VOLUME 90.3 fl (80.0-96.0); MONO # 1.3 10^3/uL (0.0-0.8); MONO % 8.1 % (2.0-8.0); NEUTROPHILS # 13.8 10^3/uL (1.5-8.5); NEUTROPHILS % 89.6 % (36.0-66.0); PLATELET COUNT, AUTOMATED 210 10^3/uL (150-450); RED BLOOD COUNT 4.75 10^6/uL (4.30-6.10); WHITE BLOOD COUNT 15.4 10^3/uL (4.0-10.0)
[2024-01-13 15:37] LABS: ALBUMIN 3.5 G/DL (3.2-5.2); ALKALINE PHOSPHATASE 81 U/L (40-129); ALT/SGPT 26 U/L (7.0-40); AST/SGOT 53 U/L (<34); BILIRUBIN,DIRECT 0.4 MG/DL (<0.4); BILIRUBIN,TOTAL 1.8 MG/DL (0.3-1.2); BLOOD UREA NITROGEN 25 MG/DL (9-23); CALCIUM LEVEL 8.9 MG/DL (8.3-10.6); CARBON DIOXIDE LEVEL 25 MMOL/L (20-31); CHLORIDE LEVEL 101 MMOL/L (98-107); CREATININE FOR GFR 0.55 MG/DL (0.70-1.30); GLOMERULAR FILTRATION RATE > 60.0 (>35); GLUCOSE, FASTING 175 MG/DL (74-106); LIPASE 30 U/L (12-53); POTASSIUM SERUM 5.9 MMOL/L (3.5-5.1); SODIUM LEVEL 132 MMOL/L (136-145)
[2024-01-13] MEDS: METOCLOPRAMIDE INJ 10MG/2ML VIAL IV ONE (15:48)
[2024-01-13] MEDS: GASTROGRAFIN SOLUTION 30ML PO SCH (16:43)
[2024-01-13] MEDS: NS 500 ML IV ONE (16:43)
[2024-01-13] MEDS: fentaNYL 100 MCG/2 ML INJECTION IV PRN (17:09)
[2024-01-13] MEDS ORDERED: ISOVUE-370 76% 100ML VIAL As Ordered ONE (17:23)
[2024-01-13] MEDS ORDERED: ACETAMINOPHEN 325 MG TAB PO PRN (18:30)
[2024-01-13] MEDS ORDERED: KETOROLAC 30 MG/ML 1ML VIAL IV PRN (18:40)
[2024-01-13] MEDS ORDERED: ALBUTEROL 90 MCG/ACT 8GM HFA INHALER INH PRN (18:45)
[2024-01-13] MEDS ORDERED: DEXTROSE 50% 50ML SYRINGE IV PRN (19:05)
[2024-01-13] MEDS ORDERED: ACETAMINOPHEN 500 MG TAB PO PRN (19:05)
[2024-01-13] MEDS ORDERED: GLUCOSE 4 GM CHEW PO PRN (19:05)
[2024-01-13] MEDS ORDERED: GLUCAGON INJ 1MG VIAL SC PRN (19:05)
[2024-01-13] MEDS: LR 1,000 ML IV SCH (19:15)
[2024-01-13 20:40] VITALS: BP 134/82; TEMP 98.1; O2SAT 94
[2024-01-13] MEDS ORDERED: QUEtiapine FUMARATE 200 MG TAB PO SCH (21:00)
[2024-01-13] MEDS: KETOROLAC 30 MG/ML 1ML VIAL IV PRN (21:04)
[2024-01-13] MEDS: ONDANSETRON 4MG 2ML VIAL IV PRN (21:04)
[2024-01-13] MEDS: SCOPOLAMINE 1MG TRANSDERMAL PATCH TOP SCH (21:04)
[2024-01-13] MEDS ORDERED: QUET300T2 PO (23:27)
[2024-01-13] MEDS ORDERED: ATIV1TAB10 PO (23:27)
[2024-01-13] MEDS ORDERED: ZOLP10TA2 PO (23:27)
[2024-01-13] MEDS ORDERED: CLOP75TA2 PO (23:27)
[2024-01-13] MEDS ORDERED: LACT10SO94 PO (23:27)
[2024-01-13] MEDS ORDERED: HOME MED LIST COMPLETE! XX SCH (23:30)
[2024-01-13] MEDS: TAMSULOSIN 0.4 MG CAP PO SCH (23:39)
[2024-01-13] MEDS: QUEtiapine FUMARATE 25 MG TAB PO ONE (23:39)
[2024-01-13] MEDS: QUEtiapine FUMARATE 200 MG TAB PO ONE (23:39)
[2024-01-13 23:42] VITALS: TEMP 98; O2SAT 89
[2024-01-13 23:45] VITALS: O2SAT 90
[2024-01-13 23:50] VITALS: O2SAT 92
[2024-01-14] MEDS ORDERED: HOME MED LIST COMPLETE! XX SCH
[2024-01-14 04:00] VITALS: BP 112/89; TEMP 97.7; O2SAT 93
[2024-01-14] MEDS: LEVOTHYROXINE 100MCG (0.1MG) 5ML SDV PF (SOLUTION FORM) IV SCH (05:20)
[2024-01-14 06:06] LABS: HEMATOCRIT 41.9 % (42.0-52.0); HEMOGLOBIN 14.9 g/dl (13.5-17.5); MEAN CORPUSCULAR HGB CONC 35.6 g/dl (32.0-36.5); MEAN CORPUSCULAR VOLUME 90.1 fl (80.0-96.0); PLATELET COUNT, AUTOMATED 211 10^3/uL (150-450); RED BLOOD COUNT 4.65 10^6/uL (4.30-6.10); WHITE BLOOD COUNT 7.8 10^3/uL (4.0-10.0)
[2024-01-14 06:29] LABS: BLOOD UREA NITROGEN 34 MG/DL (9-23); CALCIUM LEVEL 9.7 MG/DL (8.3-10.6); CARBON DIOXIDE LEVEL 32 MMOL/L (20-31); CHLORIDE LEVEL 98 MMOL/L (98-107); GLOMERULAR FILTRATION RATE > 60.0 (>35); GLUCOSE, FASTING 148 MG/DL (74-106); POTASSIUM SERUM 4.1 MMOL/L (3.5-5.1); SODIUM LEVEL 134 MMOL/L (136-145)
[2024-01-14] MEDS ORDERED: MORPHINE 4 MG/ML 1ML VIAL IV PRN (07:20)
[2024-01-14] MEDS ORDERED: MORPHINE 2 MG/ML 1ML VIAL IV PRN (07:20)
[2024-01-14] MEDS: ASPIRIN 81MG CHEW TABLET PO SCH (08:37)
[2024-01-14] MEDS: SENNA 8.6 MG TAB (SENOKOT) PO SCH (09:00)
[2024-01-14] MEDS: DOCUSATE SODIUM 100MG CAPSULE PO SCH (09:00)
[2024-01-14] MEDS: MOM 30ML SUSPENSION UDC NG ONE (11:50)
[2024-01-14 12:00] VITALS: BP 126/87; TEMP 98.1; O2SAT 93
[2024-01-14 19:32] VITALS: BP 127/86; TEMP 97.9; O2SAT 92
[2024-01-14] MEDS: QUEtiapine FUMARATE 25 MG TAB PO SCH (20:43)
[2024-01-14] MEDS: QUEtiapine FUMARATE 200 MG TAB PO SCH (20:43)
[2024-01-15 03:50] VITALS: BP 129/85; TEMP 97.9; O2SAT 96
[2024-01-15 06:11] LABS: HEMATOCRIT 37.7 % (42.0-52.0); HEMOGLOBIN 13.3 g/dl (13.5-17.5); MEAN CORPUSCULAR HEMOGLOBIN 32.6 pg (27.0-33.0); MEAN CORPUSCULAR HGB CONC 35.3 g/dl (32.0-36.5); MEAN CORPUSCULAR VOLUME 92.4 fl (80.0-96.0); PLATELET COUNT, AUTOMATED 172 10^3/uL (150-450); RED BLOOD COUNT 4.08 10^6/uL (4.30-6.10)
[2024-01-15 06:46] LABS: BLOOD UREA NITROGEN 24 MG/DL (9-23); CALCIUM LEVEL 8.4 MG/DL (8.3-10.6); CARBON DIOXIDE LEVEL 29 MMOL/L (20-31); CHLORIDE LEVEL 106 MMOL/L (98-107); CREATININE FOR GFR 0.59 MG/DL (0.70-1.30); GLOMERULAR FILTRATION RATE > 60.0 (>35); GLUCOSE, FASTING 117 MG/DL (74-106); POTASSIUM SERUM 3.7 MMOL/L (3.5-5.1); SODIUM LEVEL 140 MMOL/L (136-145)
[2024-01-15] MEDS: LR 1,000 ML IV SCH (11:39)
[2024-01-15 12:05] VITALS: BP 134/100; TEMP 97.5; O2SAT 92
[2024-01-15] MEDS: ENOXAPARIN 40MG/0.4ML SYRINGE (J1650 PER 10MG) SC SCH (12:44)
[2024-01-15 19:59] VITALS: BP 142/85; TEMP 98.8; O2SAT 94
[2024-01-15] MEDS: RAMELTEON 8 MG TAB (ROZEREM) PO PRN (20:42)
[2024-01-16 03:18] VITALS: BP 136/70; TEMP 97.9; O2SAT 94
[2024-01-16] MEDS: LEVOTHYROXINE 50MCG TABLET (0.05MG) PO SCH (05:41)
[2024-01-16 06:27] LABS: HEMATOCRIT 37.3 % (42.0-52.0); HEMOGLOBIN 12.6 g/dl (13.5-17.5); MEAN CORPUSCULAR HEMOGLOBIN 31.8 pg (27.0-33.0); MEAN CORPUSCULAR HGB CONC 33.8 g/dl (32.0-36.5); MEAN CORPUSCULAR VOLUME 94.2 fl (80.0-96.0); PLATELET COUNT, AUTOMATED 179 10^3/uL (150-450); RED BLOOD COUNT 3.96 10^6/uL (4.30-6.10); WHITE BLOOD COUNT 6.5 10^3/uL (4.0-10.0)
[2024-01-16 06:55] LABS: BLOOD UREA NITROGEN 16 MG/DL (9-23); CALCIUM LEVEL 8.5 MG/DL (8.3-10.6); CARBON DIOXIDE LEVEL 28 MMOL/L (20-31); CHLORIDE LEVEL 108 MMOL/L (98-107); CREATININE FOR GFR 0.52 MG/DL (0.70-1.30); GLOMERULAR FILTRATION RATE > 60.0 (>35); GLUCOSE, FASTING 95 MG/DL (74-106); POTASSIUM SERUM 3.4 MMOL/L (3.5-5.1); SODIUM LEVEL 142 MMOL/L (136-145)
[2024-01-16] MEDS: POTASSIUM CHLORIDE 10% LIQ 20MEQ/15ML UDC PO ONE (09:37)
[2024-01-16 09:59] VITALS: BP 139/82; TEMP 97.2; O2SAT 97
[2024-01-16 12:00] VITALS: BP 143/83; TEMP 97.7; O2SAT 95
[2024-01-16 12:03] VITALS: BP 143/83; TEMP 97.7; O2SAT 95
[2024-01-16] MEDS ORDERED: COLA100C5 PO (13:09)
[2024-01-16] MEDS ORDERED: SENN-186 PO (13:09)
[2024-01-16] MEDS ORDERED: ECOT81TA5 PO (13:12)
== END 2024-01-16 15:27 | disposition home or self-care (01) | DRG 389 ==
LOC: EDBD 14:27 → M ED 14:27 → M ED INP 18:29 → M MSPAV 20:30
PROVIDERS: ADMIT Student in an Organized Health Care Education/Training Program; ATTEND Internal Medicine
DX: K56.601 Complete intestinal obstruction, unspecified as to cause (principal); I48.4 Atypical atrial flutter; E87.20 Acidosis, unspecified; N17.9 Acute kidney failure, unspecified; J98.11 Atelectasis; E87.1 Hypo-osmolality and hyponatremia; I49.5 Sick sinus syndrome; I48.0 Paroxysmal atrial fibrillation; I10 Essential (primary) hypertension; F31.9 Bipolar disorder, unspecified; G47.00 Insomnia, unspecified; J45.909 Unspecified asthma, uncomplicated; N40.0 Benign prostatic hyperplasia without lower urinary tract symptoms; K57.30 Diverticulosis of large intestine without perforation or abscess without bleeding; K59.09 Other constipation; E87.5 Hyperkalemia; F41.9 Anxiety disorder, unspecified; G47.33 Obstructive sleep apnea (adult) (pediatric); E03.9 Hypothyroidism, unspecified; R09.02 Hypoxemia; Z95.0 Presence of cardiac pacemaker; Z79.890 Hormone replacement therapy; Z79.899 Other long term (current) drug therapy

== ENCOUNTER → 2024-08-27 | Outpatient (CLI) | payer MEDICARE ==
[~2024-08-27] MED LIST changes: -AMBI5TAB PO; -AMIO200T49; +AMIO200T54; +AMMO12CR4 TOP; -AMMO12CR7 TOP; +ATIV1TAB10 PO; +CLOP75TA2 PO; +COLA100C5 PO; +ECOT81TA5 PO; +LACT10SO94 PO; +SENN-186 PO; +ZOLP-532 PO; +ZOLP10TA2 PO
[2024-08-27 13:18] LABS: CALCIUM LEVEL 8.9 MG/DL (8.3-10.6); CARBON DIOXIDE LEVEL 25 MMOL/L (20-31); CHLORIDE LEVEL 100 MMOL/L (98-107); CREATININE FOR GFR 0.60 MG/DL (0.70-1.30); GLOMERULAR FILTRATION RATE > 90.0 (>35); POTASSIUM SERUM 4.4 MMOL/L (3.5-5.1); SODIUM LEVEL 135 MMOL/L (136-145)
== END ==
LOC: M LAB 11:45
DX: I10 Essential (primary) hypertension (principal)

== ENCOUNTER → 2024-12-15 | Outpatient (CLI) | payer MEDICARE ==
[~2024-12-15] MED LIST changes: +ZOLP10TA11 PO; -ZOLP10TA2 PO
== END ==
LOC: M RAD 14:14
PROVIDERS: ATTEND Physician Assistant
DX: K59.09 Other constipation (principal)